=== PATIENT | male | born 1935 | race Caucasian/White ===

== ENCOUNTER 2016-08-24 07:30 | Emergency (ER) | payer OTHER ==
[~2016-08-24] VITALS: Ht 165.1 cm; Wt 77.1 kg
[~2016-08-24 07:30] MED LIST: ALPRAZOLAM PO; ALPRAZOLAM1 M1 PO; AMBIEN 5 MG TABL5 M1 PO; ASPIRIN EC81 M1 PO; BACTRIM DS TAB1 EACH PO; BENICAR40 MG PO; BYSTOLIC 5 MG5 M1 PO; CAL-MAG-ZINC T1 EACH PO; CALCIUM 600 +1 EAC1 PO; CAYENNE PEPPER PO; CIPROFLOXACIN500 M1 PO; COUMADIN 5 MG TA5 M1 PO; DESYREL50 MG PO; ENOXAPARIN80 MG/0.8 SUBQ; FLOMAX PO; FOLIC ACID0.4 MG PO; FOLIC ACID1 MG PO; HYDROCODON-ACE1 EAC1 PO; IBUPROFEN 400400 M1 PO; LOPERAMIDE 2 MG2 M1 PO; LORTAB 5 MG/5001 TA1 PO; LORTAB 7.5/5001 TA3 PO; NITROQUICK0.4 MG SUBLING; OMEGA-31000 MG PO; PREDNISONE 5 MG5 M1; PRILOSEC 20 MG20 MG PO; REMERON15 MG PO; SULFASALAZINE500 M4 PO; TAMSULOSIN HCL0.4 MG PO; TUMS PO; XANAX 0.5 MG0.5 M1 PO; XYLOCAINE; [UNRECOGNIZED DRUG - OTHER] PO; [UNRECOGNIZED DRUG - OTHER] PO
[2016-08-24] MEDS ORDERED: ASPIR 8181 MG PO (07:44)
[2016-08-24 07:55] LABS: HEMATOCRIT 30.8 % (42.0-52.0); HEMOGLOBIN 10.4 gm/dL (14.0-18.0); MCH 30.9 pg (26.0-34.0); MCHC 33.9 g/dL (28.0-37.0); MCV 91.2 fL (80.0-100.0); PLATELET COUNT 233 thou/uL (150-400); RBC 3.38 mil/uL (4.50-6.00); WBC 8.3 thou/uL (4.0-11.0)
[2016-08-24 07:58] LABS: MANUAL DIFF YES
[2016-08-24 08:13] LABS: ALBUMIN 2.7 g/dL (3.4-5.0); CALCIUM 8.5 mg/dL (8.5-10.1); CREATININE 0.7 mg/dL (0.6-1.3); DIRECT BILIRUBIN 0.4 mg/dL (<0.1-0.3); POTASSIUM 3.4 mmol/L (3.5-5.1); TOTAL BILIRUBIN 0.9 mg/dL (<0.1-1.0); TOTAL PROTEIN 6.3 g/dL (6.4-8.2)
[2016-08-24 08:19] LABS: URINE BILIRUBIN 2+ (Negative); URINE BLOOD 3+ (Negative); URINE COLOR YELLOW; URINE GLUCOSE-RANDOM* NEGATIVE (Negative); URINE KETONES 3+ (Negative); URINE NITRITE NEGATIVE (Negative); URINE PROTEIN (DIPSTICK) 2+ (Negative); URINE SPECIFIC GRAVITY 1.025 (1.003-1.035)
[2016-08-24 08:25] LABS: ICTOTEST (BILI CONFIRMATORY) Positive (Negative)
[2016-08-24 08:31] LABS: SQUAMOUS 0-3 Few /LPF (0-3)
[2016-08-24 08:32] LABS: BACTERIA 1-9 Few /HPF (None Seen); CRYSTALS None Seen /LPF (None Seen); HYALINE CASTS 0-3 Few /LPF (None Seen); URINE RBC >20 Many /HPF (0-2)
[2016-08-24 08:32] LABS: ABSOLUTE NEUTROPHILS 6.1 thou/uL (1.4-8.2); ANISOCYTOSIS 1+; TOTAL CELL COUNT 100
[2016-08-24] MEDS ORDERED: KEFLEX500 MG PO (09:10)
[2016-08-24 11:04] VITALS: BP 125/72
== END 2016-08-24 11:05 | disposition home or self-care (01) ==
LOC: ER 07:30
PROVIDERS: Emergency Medicine
DX: N39.0 Urinary tract infection, site not specified (principal); R30.0 Dysuria; Z95.810 Presence of automatic (implantable) cardiac defibrillator; J44.9 Chronic obstructive pulmonary disease, unspecified; Z95.5 Presence of coronary angioplasty implant and graft; I10 Essential (primary) hypertension; F41.9 Anxiety disorder, unspecified; Z86.69 Personal history of other diseases of the nervous system and sense organs; Z98.890 Other specified postprocedural states; F17.210 Nicotine dependence, cigarettes, uncomplicated